=== PATIENT | female | born 1955 | race African-American/Black ===

== ENCOUNTER 2022-05-18 08:50 | Inpatient (IN) | payer OTHER ==
[~2022-05-18] VITALS: Ht 167.6 cm; Wt 83.9 kg
--- NOTE | 2022-05-18 08:50 | NUR ---
BHARGAV CARLISLE, TO BED 01 VIA DEE.
[2022-05-18 08:56] VITALS: BP 140/90
--- NOTE | 2022-05-18 09:07 | NUR ---
PT TO BED 1 ON ARRIVAL, RECEIVING ALBUTEROL, RN AND EMT W PT AT TRIAGE TIME
--- NOTE | 2022-05-18 09:48 | NUR ---
Pt bib als for sob while at SNF. Pt recieved a breathing tx in route to ED and already recieving supp O2 via mask at 10 lpm. Pt now sating at 100%. Breathing problems reportded as starting today upon waking. Pt is a/o x 4, vss, breathing equal and bilat, speech clear, has seen pt, IV placed and lab collected specimen. Pt on monitor.
[2022-05-18 10:00] LABS: BASOPHILS # (AUTO) 0.1 K/uL (0.00-0.22); BASOPHILS % (AUTO) 1.7 % (0.0-2.0); EOSINOPHILS # (AUTO) 0.2 K/uL (0-0.4); EOSINOPHILS % (AUTO) 4.4 % (0.0-4.0); HEMATOCRIT 32.4 % (36-48); HEMOGLOBIN 10.8 g/dL (12.0-16.0); LYMPHOCYTES # (AUTO) 1.8 K/uL (2.5-16.5); LYMPHOCYTES % (AUTO) 39.1 % (20.5-51.1); MEAN CORPUSCULAR HEMOGLOBIN 32 pg (27-31); MEAN CORPUSCULAR HGB CONC 33 g/dL (33-37); MEAN CORPUSCULAR VOLUME 96.3 fL (80-94); MONOCYTES # (AUTO) 0.3 K/uL (0.8-1.0); MONOCYTES % (AUTO) 5.7 % (1.7-9.3); NEUTROPHILS # (AUTO) 2.2 K/uL (1.8-7.7); NEUTROPHILS % (AUTO) 49.1 % (42.2-75.2); PLATELET COUNT (AUTO) 195 K/uL (140-450); RED BLOOD CELL COUNT(AUTO) 3.36 MIL/uL (4.20-5.40); RED CELL DISTRIBUTION WIDTH 21.4 % (11.6-13.7); WHITE BLOOD COUNT (AUTO) 4.5 K/uL (4.8-10.8)
[2022-05-18 10:08] LABS: ALBUMIN 3.6 g/dL (3.4-5.0); ANION GAP 16.6 (8-16); CARBON DIOXIDE 27.6 mmol/L (21-32); CREATININE 3.2 mg/dL (0.6-1.3); POTASSIUM 4.2 mmol/L (3.5-5.1); TOTAL BILIRUBIN 1.9 mg/dL (0.0-1.0)
[2022-05-18] MEDS ORDERED: FUROSEMIDE 40 MG/4 ML VIAL IVP ONE (10:30)
[2022-05-18] MEDS ORDERED: FUROSEMIDE 20 MG/2 ML VIAL IVP ONE (11:00)
--- NOTE | 2022-05-18 11:28 | NUR ---
Pt placed on bedpan. Pt did not urinate after 15 minutes, bedpan removed.
[2022-05-18] MEDS ORDERED: MAG SULF 2000 MG/WATER PREMIX 50 ML IV PRN (13:15)
[2022-05-18] MEDS ORDERED: ZOLPIDEM 10 MG TAB PO PRN (13:15)
[2022-05-18] MEDS ORDERED: ONDANSETRON 4 MG/2 ML VIAL IVP PRN (13:15)
[2022-05-18] MEDS ORDERED: DOCUSATE SODIUM 100 MG GELCAP PO PRN (13:15)
[2022-05-18] MEDS ORDERED: POTASSIUM CHLORIDE 10 MEQ TABER PO PRN (13:15)
--- NOTE | 2022-05-18 13:34 | NUR ---
Pt a/o x 4 and had clear thought processes. Pt aware of need for urine. Pt had call light in hand but still urinated in bed. Pt cleaned linens changed.
--- NOTE | 2022-05-18 14:00 | NUR ---
UA sample obtained. Labeled and walked to lab.
[2022-05-18 14:31] LABS: APPEARANCE,URINE SL CLOUDY (CLEAR); BILIRUBIN,URINE NEGATIVE (NEGATIVE); BLOOD, URINE 2+ (NEGATIVE); COLOR,URINE YELLOW (YELLOW); LEUKOCYTE ESTERASE ,URINE 3+ (NEGATIVE); NITRITE, URINE POSITIVE (NEGATIVE); PH,URINE 7.5 (5.0-9.0); UGLUCOSE NEGATIVE (NEGATIVE)
[2022-05-18] MEDS ORDERED: ASPI-1856 PO (15:06)
[2022-05-18] MEDS ORDERED: LACT10CA PO (15:06)
[2022-05-18] MEDS ORDERED: APIX5TAB4 PO ×2 (15:06→17:37)
[2022-05-18] MEDS ORDERED: TORS20TA3 PO (15:06)
[2022-05-18] MEDS ORDERED: LEVA1.2524 INH (15:06)
[2022-05-18] MEDS ORDERED: METO25TA PO (15:06)
[2022-05-18] MEDS ORDERED: GABA100C PO (15:06)
[2022-05-18] MEDS ORDERED: HYDR-5080 PO ×2 (15:06→17:37)
[2022-05-18] MEDS ORDERED: CEFT1PDS IV (15:06)
[2022-05-18] MEDS ORDERED: SACU1TAB9 PO ×2 (15:06→17:37)
[2022-05-18 15:32] LABS: RBC,URINE 20-50 /HPF (0-5); WBC,URINE 20-60 /HPF (0-5)
[2022-05-18 15:33] LABS: TRICHOMONAS,URINE None Seen /HPF (None Seen); YEAST,URINE None Seen /HPF (None Seen)
--- NOTE | 2022-05-18 16:28 | NUR ---
Pt given water, after confirming cardiac diet order. Pt a/o x 4, vss, no ss of acute distress, pt continuosly takes her 02 off and still sats above 96%, breathing equal and unlabored. On monitor.
--- NOTE | 2022-05-18 17:25 | NUR ---
Pt unable to remember medications. Clement contacted at [phone]. Clement stated he would find her medication list and call back.
[2022-05-18] MEDS ORDERED: METO50TE2 PO (17:37)
--- NOTE | 2022-05-18 18:38 | NUR ---
Patient discharged with v/s stable. Written and verbal after care instructions given and explained. Patient verbalized understanding. Ambulatory with steady gait. All questions addressed prior to discharge. Advised to follow up with PMD. Left with granddaughter.
--- NOTE | 2022-05-18 19:25 | NUR ---
pt is alert oriented x 4. she s resting in the bed, she wish to have her son coming over. i have explaind her that visiting hours is tommorow.
--- NOTE | 2022-05-18 21:45 | NUR ---
Patient will be admitted to care of CHF. Admited to telemery. Will go to room 111B. Belongings list completed. Report to elvi.
--- NOTE | 2022-05-18 22:35 | NUR ---
PT WAS ADMITTED TO [facility]. PT IS AOX4, BED REST, ABLE TO FOLLOW COMMANDS AND ABLE TO VERBALIZE NEEDS. PT IS ON ROOM AIR AND ON CARDIAC DIET. PT HAS PUREWICK AND HAS IV ON RIGHT AC GAUGE 20 SALINE LOCK. PT SKIN IS INTACT. PT WAS ORIENTED TO HOSPITAL/ROOM, BED BUTTON AND CALL LIGHT. ALL SAFETY MEASURES IMPLEMENTED. BED IN LOW POSITION, BED WHEELS ON LOCKED AND CALL LIGHT WITHIN REACH.
--- NOTE | 2022-05-19 | NUR ---
PT IS SLEEPING. CHEST RISE AND FALL SYMMETRICALLY NOTED. RESPIRATION IS EVEN AND UNLABORED. ALL SAFETY MEASURES IMPLEMENTED. BED IN LOW POSITION, BED WHEELS ON LOCK AND CALL LIGHT WITHIN REACH.
--- NOTE | 2022-05-19 02:00 | NUR ---
PT IS SCREAMING WHILE SLEEPING. WAKE UP THE PT AND SAID THAT SHE'S FINE. NO COMPLAIN OF PAIN AT THIS TIME. NO S/S OF RESPIRATORY DISTRESS NOTED. ALL SAFETY MEASURES IMPLEMENTED. BED IN LOW POSITION, BED WHEELS ON LOCK AND CALL LIGHT WITHIN REACH.
[2022-05-19 04:00] VITALS: BP 117/52
--- NOTE | 2022-05-19 04:00 | NUR ---
MORNING CARE WAS DONE TO PT. CHANGED LINENS, GOWN AND CHUCKS. ALL SAFETY MEASURES IMPLEMENTED. BED IN LOW POSITION, BED WHEELS ON LOCK AND CALL LIGHT WITHIN REACH.
[2022-05-19 06:59] LABS: BASOPHILS % (AUTO) 0.9 % (0.0-2.0); EOSINOPHILS # (AUTO) 0.2 K/uL (0-0.4); HEMATOCRIT 29.3 % (36-48); HEMOGLOBIN 9.8 g/dL (12.0-16.0); LYMPHOCYTES # (AUTO) 0.5 K/uL (2.5-16.5); MEAN CORPUSCULAR HEMOGLOBIN 32 pg (27-31); MEAN CORPUSCULAR HGB CONC 33 g/dL (33-37); MEAN CORPUSCULAR VOLUME 96.3 fL (80-94); MONOCYTES # (AUTO) 0.4 K/uL (0.8-1.0); NEUTROPHILS # (AUTO) 2.4 K/uL (1.8-7.7); NEUTROPHILS % (AUTO) 68.9 % (42.2-75.2); PLATELET COUNT (AUTO) 159 K/uL (140-450); RED BLOOD CELL COUNT(AUTO) 3.05 MIL/uL (4.20-5.40); RED CELL DISTRIBUTION WIDTH 23.3 % (11.6-13.7); WHITE BLOOD COUNT (AUTO) 3.5 K/uL (4.8-10.8)
[2022-05-19 07:21] LABS: ANION GAP 16.1 (8-16); CARBON DIOXIDE 28.1 mmol/L (21-32); CREATININE 2.7 mg/dL (0.6-1.3); POTASSIUM 4.2 mmol/L (3.5-5.1)
--- NOTE | 2022-05-19 07:26 | NUR ---
PT IS STABLE. ENDORSED PT TO MORNING SHIFT NURSE FOR CONTINUITY OF CARE.
--- NOTE | 2022-05-19 07:34 | NUR ---
GOT REPORT FROM THE NIGHT NURSE, PT AWAKE SAYS SHE DOES NOT KNOW WEATHER SHE IS GOING TO , DISCUSSED POC.[id number].
[2022-05-19 08:00] VITALS: BP 140/70
[2022-05-19 08:03] LABS: EOSINOPHILS % (AUTO) 4.7 % (0.0-4.0); LYMPHOCYTES % (AUTO) 13.6 % (20.5-51.1); MONOCYTES % (AUTO) 11.9 % (1.7-9.3)
--- NOTE | 2022-05-19 08:54 | NUR ---
PATIENT HAS BEEN SCREENED AND CATEGORIZED MODERATE NUTRITION RISK. PATIENT WILL BE SEEN WITHIN 3-5 DAYS OF ADMISSION. 05/18/22-05/23/[address]
[2022-05-19] MEDS: METOPROLOL SUCCINATE 50 MG TABER PO SCH (09:00)
[2022-05-19] MEDS: LEVOFLOXACIN 250 MG/D5 PREMIX 50 ML IV SCH (09:00)
[2022-05-19] MEDS: FUROSEMIDE 40 MG/4 ML VIAL IVP SCH (09:00)
[2022-05-19 12:00] VITALS: BP 128/70
[2022-05-19 16:00] VITALS: BP 129/74
--- NOTE | 2022-05-19 19:30 | NUR ---
RECEIVED ENDORSEMENT FROM DAY SHIFT NURSE FOR CONTINUITY OF CARE. PT IS AWAKE, ALERT AND VERBALLY RESPONSIVE. PT DENIES OF PAIN AT THIS TIME. SHE IS ON ROOM AIR AND ON CARDIAC DIET. PT IS USING PURWICK AND SHE IS STRICT I&O. PT IS ON SALINE LOCK, IV SITE IS ON RIGHT AC 20G. SKIN INTACT.
[2022-05-19 20:00] VITALS: BP 121/71
--- NOTE | 2022-05-19 22:00 | NUR ---
PERSONAL HYGIENE GIVEN, PT WITH BM MEDIUM AND SOFT. NO SOB OR DISTRESS.
[2022-05-20] VITALS: BP 138/76
--- NOTE | 2022-05-20 02:00 | NUR ---
PT IS AWAKE AND REPOSITIONED HER.
[2022-05-20 04:00] VITALS: BP 120/70
--- NOTE | 2022-05-20 04:00 | NUR ---
PT SLEEPING ON AND OFF. COOPERATES WITH CARE.
[2022-05-20 07:10] LABS: BASOPHILS % (AUTO) 0.6 % (0.0-2.0); EOSINOPHILS # (AUTO) 0.1 K/uL (0-0.4); EOSINOPHILS % (AUTO) 4.5 % (0.0-4.0); HEMATOCRIT 29.1 % (36-48); HEMOGLOBIN 9.7 g/dL (12.0-16.0); LYMPHOCYTES # (AUTO) 0.4 K/uL (2.5-16.5); LYMPHOCYTES % (AUTO) 13.1 % (20.5-51.1); MEAN CORPUSCULAR HEMOGLOBIN 32 pg (27-31); MEAN CORPUSCULAR HGB CONC 33 g/dL (33-37); MEAN CORPUSCULAR VOLUME 96.6 fL (80-94); MONOCYTES # (AUTO) 0.3 K/uL (0.8-1.0); MONOCYTES % (AUTO) 10.3 % (1.7-9.3); NEUTROPHILS # (AUTO) 2.1 K/uL (1.8-7.7); NEUTROPHILS % (AUTO) 71.5 % (42.2-75.2); PLATELET COUNT (AUTO) 139 K/uL (140-450); RED BLOOD CELL COUNT(AUTO) 3.01 MIL/uL (4.20-5.40); RED CELL DISTRIBUTION WIDTH 23.8 % (11.6-13.7); WHITE BLOOD COUNT (AUTO) 2.9 K/uL (4.8-10.8)
[2022-05-20 07:25] LABS: ANION GAP 14.3 (8-16); CARBON DIOXIDE 28.6 mmol/L (21-32); CREATININE 2.4 mg/dL (0.6-1.3); POTASSIUM 3.9 mmol/L (3.5-5.1)
--- NOTE | 2022-05-20 07:40 | NUR ---
PT IS ON STABLE CONDITION. ENDORSED TO DAY SHIFT NURSE FOR CONTINUITY OF CARE. ALL SAFETY MEASURES ARE IN PLACE.
[2022-05-20] MEDS: LEVOFLOXACIN 250 MG/D5 PREMIX 50 ML IV SCH (08:10)
[2022-05-20] MEDS: METOPROLOL SUCCINATE 50 MG TABER PO SCH (08:10)
[2022-05-20] MEDS: FUROSEMIDE 40 MG/4 ML VIAL IVP SCH (08:10)
--- NOTE | 2022-05-20 09:32 | NUR ---
NURSES NOTE PATIENT RECEIVED ON BED SIDE , A/OX4 , VSS , A FLUTER ON MONITOR , SKIN INTACT ON IV SALINE LOCKED , ON CARDIAC DIET , ROOM AIR BEDBOUND ON BED , STILL UNDER OBSERVE .
[2022-05-20 09:52] VITALS: BP 126/58
[2022-05-20] MEDS: ACETAMINOPHEN 325 MG TAB PO PRN (12:50)
[2022-05-20 13:03] VITALS: BP 127/70
--- NOTE | 2022-05-20 14:38 | NUR ---
NURSES NOTE : PATIENT SHOWED 14 BEAT VT ON MONITOR FOR SECONDS , DR MEEKS INFORMED WAITING TO CALL ME BACK .
--- NOTE | 2022-05-20 14:48 | NUR ---
NURSES NOTE PATIENT A/OX4 , VSS , A FLUTER ON MONITOR , SKIN INTACT , ON CARDIAC DIET , NO COMPLAIN AT THIS TIME ON PUREWICK , BED REST , STILL UNDER OBSERVE .
[2022-05-20 17:17] VITALS: BP 126/70
--- NOTE | 2022-05-20 19:42 | NUR ---
RECEIVED ENDORSEMENT FROM DAY SHIFT NURSE FOR CONTINUITY OF CARE. PT IS AWAKE, ALERT AND ON BED VERBALLY NEEDS. PT IS ON CARDIAC DIET. PT CONTINUE WITH STRICT I&O. IV SITE IS ON RIGHT AC INTACT. PT IS STABLE AT THIS TIME, NO COMPLAINTS OF PAIN OR DISCOMFORT.
--- NOTE | 2022-05-20 19:43 | NUR ---
`SHIFT REPORT GIVEN TO GERA ZAMBRANO ALL HER QUESTION ANSWER .
[2022-05-20 20:00] VITALS: BP 139/69
[2022-05-21] VITALS: BP 139/69
[2022-05-21] MEDS: LORazepam 2 MG/ML VIAL IVP PRN ×2 (01:41→17:06)
--- NOTE | 2022-05-21 01:41 | NUR ---
PT IS WITH ANXIETY AND AGITATION, ATIVAN IVP ADMINISTERED ORDER.
--- NOTE | 2022-05-21 02:00 | NUR ---
PT SLEEPS WELL. NO FACIAL GRIMACING.
[2022-05-21 04:00] VITALS: BP 119/86
--- NOTE | 2022-05-21 05:40 | NUR ---
PERSONAL HYGIENE GIVEN WITH DIAPER CHANGE. PT NOTED SLEEPY AND SLEEPING. NO FACIAL GRIMACING. URINE VIA PURWICK = 1000 ML, URINE WITH CLEAR COLOR.
--- NOTE | 2022-05-21 06:49 | NUR ---
PT IS ON STABLE CONDITION AND IS SLEEPING. ALL SAFETY MEASURES ARE IN PLACE WILL ENDORSE TO DAY SHIFT NURSE FOR CONTINUITY OF CARE.
[2022-05-21 07:01] LABS: BASOPHILS % (AUTO) 0.8 % (0.0-2.0); EOSINOPHILS # (AUTO) 0.1 K/uL (0-0.4); EOSINOPHILS % (AUTO) 2.5 % (0.0-4.0); HEMATOCRIT 29.7 % (36-48); LYMPHOCYTES # (AUTO) 0.5 K/uL (2.5-16.5); LYMPHOCYTES % (AUTO) 17.1 % (20.5-51.1); MEAN CORPUSCULAR HEMOGLOBIN 33 pg (27-31); MEAN CORPUSCULAR HGB CONC 34 g/dL (33-37); MEAN CORPUSCULAR VOLUME 96.3 fL (80-94); MONOCYTES # (AUTO) 0.3 K/uL (0.8-1.0); MONOCYTES % (AUTO) 11.4 % (1.7-9.3); NEUTROPHILS # (AUTO) 1.9 K/uL (1.8-7.7); NEUTROPHILS % (AUTO) 68.2 % (42.2-75.2); PLATELET COUNT (AUTO) 132 K/uL (140-450); RED BLOOD CELL COUNT(AUTO) 3.09 MIL/uL (4.20-5.40); RED CELL DISTRIBUTION WIDTH 24.2 % (11.6-13.7); WHITE BLOOD COUNT (AUTO) 2.7 K/uL (4.8-10.8)
[2022-05-21 07:15] LABS: ANION GAP 12.6 (8-16); CARBON DIOXIDE 30.2 mmol/L (21-32); CREATININE 2.2 mg/dL (0.6-1.3); POTASSIUM 3.8 mmol/L (3.5-5.1)
--- NOTE | 2022-05-21 07:46 | NUR ---
RECEIVED REPORT FROM LAB BUN = 74. THIS RESULT IS TRENDING DOWN, 05/20/22 (YESTERDAY) BUN = 80.
[2022-05-21 08:00] VITALS: BP 128/85
--- NOTE | 2022-05-21 09:22 | NUR ---
DC PLANNING LATE ENTRY, PT SEEN ON 03/20 AT 12:15PM SW MET WITH PT AT BEDSIDE TO COMPLETE ASSESSMENT. PT ALERT AND ORIENTED AND ABLE TO PROVIDE ALL OF HER OWN INFORMATION. PT REPORTS RESIDING [address] [facility] [place] [facility]. PT REPORTS RESIDING W/ HER . SW INQUIRED ON SNF PLACEMENT ADDRESS ON FILE IS TO [facility]. PT ADAMANTLY DENIES COMING FROM SNF AND REPORTS UNSURE HOW ADDRESS IS LISTED ON FACE SHEET. PT REPORTS BEING ADMITTED TO [facility] FROM HOME. PT REPORTS MEETING W/PCP DR TYLER, THREE WEEKS AGO. PT REPORTS MEDICATION COMPLIANCE AND REPORTS RECEIVING MEDICATION FROM [facility] [address] [place] , WHEN NEEDED. PT REPORTS BEING AMBULATORY WITH DME ASSISTANCE; FWW AND REPORTS COMPLETING ADL'S INDEPENDENTLY. PT DENIES MH/POSEY, DIABETES, DIALYSIS TX. PT REPORTS RECEIVING HH TWO MONTHS AGO HOWEVER, STRUGGLED TO RECALL NAME OF AGENCY PROVIDING CARE. PT REPORTS DC PLAN IS TO RETURN HOME WITH [facility], PROVIDING TRANSPORTATION, WHEN MEDICALLY STABLE. SW OUTREACHED TO [facility] TO GATHER COLLATERAL INFORMATION. SPOKE WITH JOSE R FRANCE. ROMÁN REPORTS PT IS THEIR PATIENT AND WAS ADMITTED TO [facility] FROM THEIR FACILITY. PT ADMITTED TO [facility] FOR SKILLED CARE ON MAY 01. Addendum: 05/21/22 at 0924 by Demetris CHO Amended: Links added. Addendum: 05/21/22 at 1446 by Demetris CHO SW SPOKE WITH PTS , KRISTI, WHO REPORTS HE WOULD LIKE FOR PT TO RETURN TO SNF HE IS UNABLE TO CARE FOR PTS CURRENT NEEDS ON HIS OWN AT HOME. KRISTI REPORTS PT HEALTH HAS PROGRESSIVELY GOTTEN WORSE OVER THE PREVIOUS NINE MONTHS. PT REPORTS PT DOES HAVE THREE CHILDREN THAT ARE ALSO UNABLE TO PROVIDE CARE PT REQUIRES AT THIS TIME. KRISTI REPORTS HE AND HIS ADULT SON ANGELITO WILL COME TO HOSPITAL HE IS AWARE PT HAS A DC ORDER TO SPEAK TO PATIENT ABOUT RETURNING TO SNF. Addendum: 05/21/22 at 1630 by Demetris CHO SPOKE WITH CHARLENE. PT ACCEPTED TO ROOM 104 A , DR. NAYELI ROMAN, CALL REPORT NUMBER [phone] STATION 1. ENDORSED TO PT NURSE AND PT . REPROTS HE WILL BE HERE AT 630. TRANSPORT ARRANGED WITH [facility] , P/UP TIME [id number]
[2022-05-21] MEDS: LEVOFLOXACIN 250 MG/D5 PREMIX 50 ML IV SCH (09:41)
[2022-05-21] MEDS: FUROSEMIDE 40 MG/4 ML VIAL IVP SCH (09:41)
[2022-05-21] MEDS: METOPROLOL SUCCINATE 50 MG TABER PO SCH (09:41)
[2022-05-21 12:00] VITALS: BP 134/64
[2022-05-21] MEDS ORDERED: LEVO-481 PO (12:26)
[2022-05-21] MEDS ORDERED: DOCU-299 PO (12:26)
[2022-05-21] MEDS ORDERED: FURO-570 PO (12:26)
--- NOTE | 2022-05-21 15:56 | NUR ---
Right after the discharge order was written on this patient, the slab lifting engineer called with a positive culture of urine ESBL. Message was sent to the doctor biofuels production technician regarding that and she wrote back and said hold discharge and make sure Dr. Guthrie is on the case.
[2022-05-21 16:00] VITALS: BP 140/67
--- NOTE | 2022-05-21 16:06 | NUR ---
THE SOCIAL SERVICE CALLED TO SAY THAT THE DOCTOR HAS OKAYED PATIENT TO BE DISCHARGE. CHECKED TO SEE THAT DOCTOR NOW ORDERED, ERTAPENEM 1 GM IV DAILY FOR 10 DAYS AND PATIENT CAN GO PER DOCTOR REJI ALSTON . i WILL FOLLOW DOCTOR'S ORDER.
[2022-05-21] MEDS: ACETAMINOPHEN 325 MG TAB PO PRN (16:38)
--- NOTE | 2022-05-21 19:30 | NUR ---
HAND-OFF REPORT RECEIVED FROM [facility] FOR CONTINUITY OF CARE. ENDORSED JUST BEFORE D/C COVID TEST CAME BACK POSITIVE. [facility] UNABLE TO OBTAIN COVID BED THIS EVENING. PT TO REMAIN OVER NOC PENDING BED STATUS FOR TOMORROW. ORDERS RECEIVED FROM MD PEDROZA TO BEGIN ERTAPENEM WITH FIRST DOSE TONIGHT.
[2022-05-21 20:00] VITALS: BP 139/75
--- NOTE | 2022-05-21 20:00 | NUR ---
CORRECTION: HEART RHYTHM ATRIAL FLUTTER NOT ATRIAL FIB. Addendum: 05/22/22 at 0427 by Andrew Alexander RN RN APPLICABLE TIME SLOT 0000
--- NOTE | 2022-05-21 20:00 | NUR ---
CORRECTION: HEART RATE 68
--- NOTE | 2022-05-21 20:00 | NUR ---
CORRECTION: RESPIRATIONS 20
[2022-05-21] MEDS ORDERED: diphenhydrAMINE 50 MG/ML VIAL IVP PRN (20:20)
--- NOTE | 2022-05-21 20:46 | NUR ---
RAPID COVID TEST RESULTED POSITIVE. PHYSICIAN MADE AWARE AND SHE SAID IT WAS TILL OKAY TO TRANSFER PATIENT AND NOTIFY THE FACILITY OF THE POSITIVE RESULT. FACILITY WAS CALLED WITH REPORT AND WAS NOT ABLE TO TAKE PATIENT IN TODAY BECAUSE OF THE POSITIVE RESULT. THEY SAID THAT THEY ONLY HAVE NON COVID BED AVAILABLE FOR TODAY AND THAT WE SHOULD CALL BACK TOMORROW TO TALK TO ADMISSION CO-ORDINATOR TO SEE IF THEY CAN OPEN UP A COVID BED FOR THE PATIENT. THE ARTS ADMINISTRATOR OR MANAGER WAS MADE AWARE AND PATIENT WAS PUT IN ISOLATION PER PROTOCOL. PATIENT CONTINUED TO REST IN BED. NO CHANGE IN CONDITION. REPORT WAS GIVEN TO THE ON COMING SHIFT FOR A CONTINUED EXPERT CARE.
[2022-05-21] MEDS ORDERED: ERTAPENEM SODIUM 500 MG in NACL 0.9% 50 ML IV SCH (21:00)
--- NOTE | 2022-05-21 22:00 | NUR ---
PHARMACY NOTIFIED CHARGE NURSE WILL START ERTAPENEM TOMORROW IN VIEW OF PT ALLERGIES ALONG WITH BENADRYL.
[2022-05-22] VITALS: BP 145/86
--- NOTE | 2022-05-22 | NUR ---
CORRECTION: RESPIRATIONS 20
[2022-05-22] MEDS: LORazepam 2 MG/ML VIAL IVP PRN (00:47)
--- NOTE | 2022-05-22 00:47 | NUR ---
ATIVAN 2 MG FOR RESTLESSNESS.
--- NOTE | 2022-05-22 01:15 | NUR ---
ATIVAN EFFECTIVE. PT QUIETLY SLEEPING. CONT TO MONITOR AND ASSIST NEEDED.
[2022-05-22 04:00] VITALS: BP 134/82
--- NOTE | 2022-05-22 06:15 | NUR ---
83 YEAR OLD FEMALE RECEIVED FROM ER VIA DEE WITH C/C SOB., DX SOB, CHF EXACERBATION. HX CHF, AFIB CAD,PACEMAKER PLACEMENT IN 01/24, HTN, CKD, ESRD, HD M-W-F, LEFT ARM AV SHUNT , DM, HYPOTHYROID, GABRIELA (GENERALIZED ANXIETY DISORDER), DEPRESSION. RECEIVED TO ROOM 122B PER DR ALSTON SERVICES. BIPAP NOW 35% FROM 100% IN ER. SKIN INTACT. PLAN OF CARE: CONT ON BAPAP, START LASIX AND TAMIFLU, TO BE DIALYZED TODAY. DENIES PAIN. A/OX4. PT STATES WILL RETURN TO [facility] IN [place] ONCE DISCHARGED. ER REPORT RECEIVED FROM MARRY WHO REPORTED NO IV FLUIDS BEGAN BECAUSE PT IS CHF AND NOW B/P STABLE. NOTED PT ARRIVED WITH APPARENT DISLODGED IV FROM RIGHT HAND.. RESTING QUIETLY IN BED.ENDORSE TO A.M NURSE. VS [id number] ON BIPAP. CONTINUOUS PULSE OX IN EFFECT.
[2022-05-22 07:28] LABS: BASOPHILS % (AUTO) 0.4 % (0.0-2.0); EOSINOPHILS % (AUTO) 0.9 % (0.0-4.0); HEMATOCRIT 29.6 % (36-48); HEMOGLOBIN 9.7 g/dL (12.0-16.0); LYMPHOCYTES # (AUTO) 0.4 K/uL (2.5-16.5); LYMPHOCYTES % (AUTO) 8.6 % (20.5-51.1); MEAN CORPUSCULAR HEMOGLOBIN 32 pg (27-31); MEAN CORPUSCULAR HGB CONC 33 g/dL (33-37); MEAN CORPUSCULAR VOLUME 98.2 fL (80-94); MONOCYTES # (AUTO) 0.5 K/uL (0.8-1.0); MONOCYTES % (AUTO) 9.5 % (1.7-9.3); NEUTROPHILS # (AUTO) 3.9 K/uL (1.8-7.7); NEUTROPHILS % (AUTO) 80.6 % (42.2-75.2); PLATELET COUNT (AUTO) 121 K/uL (140-450); RED BLOOD CELL COUNT(AUTO) 3.01 MIL/uL (4.20-5.40); RED CELL DISTRIBUTION WIDTH 23.1 % (11.6-13.7); WHITE BLOOD COUNT (AUTO) 4.8 K/uL (4.8-10.8)
--- NOTE | 2022-05-22 07:30 | NUR ---
HAND-OFF REPORT TO ON-COMING A.M NURSE FOR CONTINUITY OF CARE. ENDORSED POSSIBLE D/C TO [facility] PENDING ISOLATION BED. RELINQUISHED CARE OF PT AT THIS TIME.PT RESTING QUIETLY IN BED
[2022-05-22 08:00] VITALS: BP 134/74
[2022-05-22] MEDS: FUROSEMIDE 40 MG/4 ML VIAL IVP SCH (09:00)
[2022-05-22] MEDS: ERTAPENEM SODIUM 500 MG in NACL 0.9% 50 ML IV SCH (09:00)
[2022-05-22] MEDS: LEVOFLOXACIN 250 MG/D5 PREMIX 50 ML IV SCH (09:00)
[2022-05-22] MEDS: METOPROLOL SUCCINATE 50 MG TABER PO SCH (09:00)
[2022-05-22 09:12] LABS: ANION GAP 16.3 (8-16); CARBON DIOXIDE 28.5 mmol/L (21-32); POTASSIUM 3.8 mmol/L (3.5-5.1)
--- NOTE | 2022-05-22 14:17 | NUR ---
OUTREACHED TO TROY CUEVAS FOR UPDATE ON AVAIL ISO BED. SPOKE WITH CHELSIE WHO REPORTS NO OPEN ISO BEDS, HOWEVER ARE CONTINUING TO WORK ON MAKING ROOM CHANGES TO ACCOMMODATE PT. HOLGUIN TO FOLLOW UP
[2022-05-22] MEDS ORDERED: INV1I IV (14:38)
[2022-05-22] MEDS ORDERED: TAM75 PO (14:38)
--- NOTE | 2022-05-22 16:43 | NUR ---
P.T. NOTES P.T. EVAL COMPLETED; REFER TO EVAL FOR DETAILS.
--- NOTE | 2022-05-22 16:52 | NUR ---
05/22/22 RD INITIAL ASSESSMENT COMPLETED PLEASE REFER TO NUTRITION ASSESSMENT UNDER CARE ACTIVITY FOR ESTIMATED NUTRITIONAL NEEDS. 1. CONTINUE CARDIAC DIET 2. PROVIDED CHF NUTRITION THERAPY HANDOUT. 3. MONITOR PO INTAKE, GI, AND LAB VALUES. 4. RD TO FOLLOW-UP 3-5 DAYS, MODERATE RISK REVIEWED BY GUIDO SEBASTIAN RD
[2022-05-22 19:04] VITALS: BP 122/72
[2022-05-22 20:00] VITALS: BP 124/76
--- NOTE | 2022-05-22 20:00 | NUR ---
HAND-OFF REPORT RECEIVED FROM ISAI ZAMBRANO . NOTED NO CHANGES PT CONTINUES AFLUTTER. PUREWICK TO WALL SUCTION AND ADJUST POSITION FOR MAXIMUM DRAW. REPORTED FAMILY VISITED AND DID INDEED FASHION CONSULTANT SALES HIS JUVENCIO READER FROM NURSING STATION TODAY. STATED PT FEELING ISOLATED FROM LOVED ONES BUT WITH THEIR BRIEF VISIT (STICKING THEIR HEAD IN THE DOOR JAM JUST TO SAY "HELLO" WENT A LONG WAY IN CHEERING HER UP IT TURNED OUT TO BE A TOTAL OF 3 FAMILY MEMBERS. FAMILY TEACHING GIVEN AND UNDERSTOOD THE PROTOCOL TO LIMIT VISITING TO STOP THE SPREAD OF THE VIRUS.CONTINUE TO ENCOURAGE PATIENT WITH THE FACT THAT SHE HAS A CARING FAMILY TO SUPPORT HER ON HER JOURNEY. PROVIDE COMFORT MEASURES AND MEDS ORDERS.
[2022-05-22] MEDS: APIXABAN 2.5 MG TAB PO SCH (21:00)
[2022-05-23] VITALS: BP 125/67
[2022-05-23 04:00] VITALS: BP 114/62
[2022-05-23 07:18] LABS: ANION GAP 15.9 (8-16); CREATININE 1.9 mg/dL (0.6-1.3); POTASSIUM 3.9 mmol/L (3.5-5.1)
[2022-05-23 07:19] LABS: HEMATOCRIT 28.9 % (36-48); HEMOGLOBIN 9.6 g/dL (12.0-16.0); MEAN CORPUSCULAR HEMOGLOBIN 33 pg (27-31); MEAN CORPUSCULAR HGB CONC 33 g/dL (33-37); MEAN CORPUSCULAR VOLUME 97.9 fL (80-94); PLATELET COUNT (AUTO) 98 K/uL (140-450); RED BLOOD CELL COUNT(AUTO) 2.95 MIL/uL (4.20-5.40); RED CELL DISTRIBUTION WIDTH 23.4 % (11.6-13.7); WHITE BLOOD COUNT (AUTO) 4.6 K/uL (4.8-10.8)
--- NOTE | 2022-05-23 07:30 | NUR ---
HAND-OFF REPORT TO CAITLIN ZAMBRANO FOR CONTINUITY OF CARE. REPORTED PT REFUSED A.M CARE, DENIES PAIN. RELINQUISHED CARE OF PT AT THIS TIME.
[2022-05-23 08:00] VITALS: BP 131/68
[2022-05-23] MEDS: FUROSEMIDE 40 MG/4 ML VIAL IVP SCH (08:54)
[2022-05-23] MEDS: APIXABAN 2.5 MG TAB PO SCH (08:57)
[2022-05-23] MEDS: LEVOFLOXACIN 250 MG/D5 PREMIX 50 ML IV SCH (08:57)
[2022-05-23] MEDS: METOPROLOL SUCCINATE 50 MG TABER PO SCH (08:58)
[2022-05-23] MEDS: ERTAPENEM SODIUM 500 MG in NACL 0.9% 50 ML IV SCH (11:01)
[2022-05-23 12:00] VITALS: BP 134/66
--- NOTE | 2022-05-23 15:46 | NUR ---
Handoff to ESPERANZA RN, at [facility]. Transport team from [facility] and family members present with patient for transportation.
[2022-05-23 16:00] VITALS: BP 132/70
[2022-05-23 21:55] LABS: EOSINOPHILS % (MANUAL) 1 % (0-4); LYMPHOCYTES % (MANUAL) 9 % (20-46); MONOCYTES % (MANUAL) 8 % (5-12)
== END 2022-05-23 16:00 | disposition home or self-care (01) | DRG 871 ==
LOC: MED 08:50 → MTU 13:15
PROVIDERS: ADMIT Family Medicine; ATTEND Family Medicine
PROC: 5A0935A Assistance with Respiratory Ventilation, Less than 24 Consecutive Hours, High Flow/Velocity Cannula (ICD-10-PCS; principal; 2022-05-18)
DX: A41.9 Sepsis, unspecified organism (principal); I50.23 Acute on chronic systolic (congestive) heart failure; J10.00 Influenza due to other identified influenza virus with unspecified type of pneumonia; J96.00 Acute respiratory failure, unspecified whether with hypoxia or hypercapnia; N17.0 Acute kidney failure with tubular necrosis; U07.1 COVID-19; J12.82 Pneumonia due to coronavirus disease 2019; I13.0 Hypertensive heart and chronic kidney disease with heart failure and stage 1 through stage 4 chronic kidney disease, or unspecified chronic kidney disease; N39.0 Urinary tract infection, site not specified; Q61.3 Polycystic kidney, unspecified; Z16.12 Extended spectrum beta lactamase (ESBL) resistance; I42.8 Other cardiomyopathies; I48.91 Unspecified atrial fibrillation; D64.9 Anemia, unspecified; N18.9 Chronic kidney disease, unspecified; B96.1 Klebsiella pneumoniae [K. pneumoniae] as the cause of diseases classified elsewhere; Z88.5 Allergy status to narcotic agent; Z88.0 Allergy status to penicillin; Z88.8 Allergy status to other drugs, medicaments and biological substances; Z79.899 Other long term (current) drug therapy; Z79.82 Long term (current) use of aspirin; Z79.01 Long term (current) use of anticoagulants; Z95.0 Presence of cardiac pacemaker
CPT/HCPCS: 36415; 71045; 76770; 80048; 80053; 81001; 83605; 83735; 83880; 84484; 85025; 87040; 87081; 87086; 96374; 97112; 97530; 99291; J1335; J1940; J1956; J2060; Q0092